=== PATIENT | male | born 1945 | race Caucasian/White ===

== ENCOUNTER 2021-09-01 16:00 | Inpatient (IN) ==
[2021-09-01 16:50] LABS: Hemoglobin 12.4 g/dL (14.0-18.0); Mean Corpuscular Hemoglobin 20.2 pg (25-34); Mean Corpuscular Hgb Conc 32.6 g/dL (32-36); Platelet Count 202 K/uL (130-400); RDW Coefficient of Variation 15.9 % (11.5-14.5); RDW Standard Deviation 35.3 fL (36.4-46.3); Red Blood Count 6.13 M/uL (4.7-6.1); White Blood Count 6.66 K/uL (4.8-10.8)
--- NOTE | 2021-09-01 16:53 | XRay Report ---
XR chest 1V portable CLINICAL HISTORY: stroke alert. Evaluate cardiopulmonary status. Nonsmoker. COMPARISON STUDY: No previous studies for comparison. TECHNIQUE: 1 view of the chest FINDINGS: Single frontal view of the chest demonstrates the cardiomediastinal silhouette to be within normal li mits. The lungs are clear of alveolar opacities. There is no evidence for pleural effusion. There is no evidence for vascular congestion. There is no acute osseous pathology. IMPRESSION: No acute cardiopulmonary disease. ACT 112: Negative or not required by law. Electronically signed by: Guilherme Ortega M.D. 09/01/2021 4:52 PM
--- NOTE | 2021-09-01 17:04 | CT Scan Report ---
HEAD CT NONCONTRAST CT DOSE: 638.56 mGycm HISTORY: Speech difficulty. Stroke symptoms. TECHNIQUE: Multiaxial CT images of the head were performed without the use of intravenous contrast. A utomated exposure control was utilized for this study. A dose lowering technique was utilized adheri ng to the principles of ALARA. Comparison: None. Findings: The paranasal sinuses and mastoid air cells are clear. The calvarium and skull base are int act. There is no mass, hematoma, midline shift, acute infarct. White matter hypodensity is nonspecifi c but suggestive of microvascular ischemic change. The ventricles and sulci demonstrate mild age-rela magdi involutional changes. Mild motion artifact. There is an old lacunar infarct within the right basa l ganglia. Impression: No acute intracranial abnormality. ACT 112: Negative or not required by law. Electronically signed by: Jacques Corley M.D. 09/01/2021 5:02 PM
[2021-09-01 17:10] LABS: Partial Thromboplastin Time 25.4 Seconds (21.0-31.0); Prothrombin Time 10.2 Seconds (9.0-12.0)
[2021-09-01 17:15] LABS: Albumin Globulin Ratio 1.5 (0.9-2); Albumin Level 4.5 gm/dl (3.4-5.0); Bilirubin,Total 0.9 mg/dl (0.2-1.0); Calcium 9.5 mg/dl (8.5-10.1); Creatinine Clr Calc Pharmacy 63.2 ml/min; Est GFR (African American) 92.9 ml/min; Est GFR (Non-African American) 80.1 ml/min; Magnesium 2.1 mg/dl (1.7-2.4); Potassium 3.9 mmol/L (3.5-5.1); Total Protein 7.5 gm/dl (6.0-8.3)
--- NOTE | 2021-09-01 17:40 | Emergency Department Note ---
History of Present Illness General Chief complaint: Leg Weakness, Bilateral Stated complaint: trouble walking, slurred speech x few days Time Seen by Provider: 09/01/21 17:26 Source: patient History of Present Illness Provider complaint: Left leg and hand weakness Onset (ago): day(s) 3 Location: upper extremity, lower extremity and left Pain Consistency: + constant (Waxing and waning) Quality: + other (Weakness) Relieved By: + none Associated symptoms: no chest pain, no cough, no fever/chills, no headaches, no nausea/vomiting or no shortness of breath This is a 75-year-old male who presents with strokelike symptoms for the past 3 days. He has had intermittent symptoms including difficulty finding words as well as slurring of his speech. He has had weakness to the left hand with incoordination and weakness to the left leg so that he has been unable to walk for the past 3 days. He states the weakness has been fairly constant although waxing and waning. He states that he has been crawling from 1 piece of furniture to the other. He does have a history of back issues and has had 3 back surgeries but states he has no back pain. He has had some urinary incontinence but states that he always has urinary incontinence and has been seen by urology for this. He does state that it seems to be worse more re cently. He denies any saddle anesthesia or any pain going down either leg. He denies headache, fever, cough or cold symptoms, chest pain, shortness of breath, abdominal pain, vomiting or diarrhea. Home Medications Medication Instructions Recorded Confirmed Type ibuprofen 600 mg tablet 600 mg PO DAILY 09/01/21 09/01/21 History Allergies Allergy/AdvReac Type Severity Reaction Status Date / Time acetaminophen AdvReac Severe Hallucinati Verified 09/01/21 17:52 [From Darvocet-N] ng azithromycin AdvReac Severe Heart races Verified 09/01/21 17:52 oxycodone [From Percocet] AdvReac Severe Hallucinati Verified 09/01/21 17:52 ng propoxyphene AdvReac Severe Hallucinati Verified 09/01/21 17:52 [From Darvocet-N] ng tramadol AdvReac Mild constipatio Verified 09/01/21 17:52 n Past Med/Surg History Medical History History of anesthesia reaction "requires just minimal amt" Kidney stone one passed on own, one cysto Left shoulder pain Osteoarthritis Thalassemia minor Surgical History H/O repair of rotator cuff L side, done 03/04/21 Dr. Coronado H/O right knee surgery arthroscopic History of colostomy History of cystoscopy History of lumbar surgery x3 History of nasal surgery History of tooth extraction Family History Father Thalassemia Denies family history of Ovarian cancer Prostate cancer Myocardial infarction Breast cancer Colorectal cancer Social History Smoking Status: Never smoker Second Hand Exposure: Yes (parents smoked); Hx Alcohol Use: Yes Alcohol type: wine and hard liquor Alcohol Intake Frequency: 2-3 x/Week Hx Substance Use: No Preferred Language: Cypriot Communication Ability: Effective Visual Impairment: No Limitations Hearing Ability: Normal Safety Council Director Required: No Beliefs That Will Affect Care: None marital status: Current Living Situation: Spouse current occupational status: retired 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 and A total of 10 systems reviewed and were otherwise negative Physical Exam Vital Signs Vital Signs - 24 hr 09/01/21 16:10 09/01/21 16:39 09/01/21 17:07 Temperature 36.9 C Temperature Source Temporal Artery Scan Pulse Rate 97 H Pulse Rate [Apical] 93 H Pulse Rhythm [Apical] Regular Pulse Strength [Apical] Normal Respiratory Rate 16 16 Respiratory Effort / Characteristics Non-Labored Respiratory Depth Normal Respiratory Pattern Regular Blood Pressure 169/88 H Blood Pressure [Right Arm] 164/105 H Blood Pressure Mean 115 Blood Pressure Mean [Right Arm] 124 Blood Pressure Position [Right Arm] Semi-fowlers Pulse Oximetry 100 99 98 Oxygen Delivery Method Room Air Room Air Room Air Sepsis Recent Fever Within 48 Hours No Sepsis New/Unexplained Change in Mental Status N/A Sepsis Action Taken by Nursing No Action Required 09/01/21 18:35 Temperature Temperature Source Pulse Rate Pulse Rate [Apical] 98 H Pulse Rhythm [Apical] Pulse Strength [Apical] Respiratory Rate 24 Respiratory Effort / Characteristics Respiratory Depth Respiratory Pattern Blood Pressure Blood Pressure [Right Arm] 181/124 H Blood Pressure Mean Blood Pressure Mean [Right Arm] 143 Blood Pressure Position [Right Arm] Pulse Oximetry 96 Oxygen Delivery Method Room Air Sepsis Recent Fever Within 48 Hours Sepsis New/Unexplained Change in Mental Status Sepsis Action Taken by Nursing Constitutional: Vital signs reviewed. Eyes: Pupils are equal round reactive to light. Conjunctiva are noninjected. ENT: Pharynx is clear without erythema or exudate. Mucous membranes are moist. Neck supple without meningeal signs. Respiratory: Clear to auscultation bilaterally. Breath sounds are equal bilaterally. Cardiovascular: Regular rate and rhythm. No rubs or gallops. GI: Soft, nondistended and nontender. Bowel sounds are present. Musculoskeletal: No peripheral edema. No lower extremity tenderness. Integumentary: No cyanosis. or jaundice. Neurologic: The patient is awake and alert. Cranial nerves II-XII are intact. Smile is slightly asymmetric on the left side but normal strength is noted. Motor is 5 out of 5 in the right upper and lower extremities. He has 4-5 strength on the left upper extremity in supervisor finish end strength as well as 3 out of 5 strength in the left leg. Sensation is intact to light touch all extremities. Normal speech. No pronator drift. Slight ataxia of the left upper extremity and definite ataxia of the left lower extremity. Psychiatric: Normal affect. Not anxious appearing. Medical Decision Making Differential Diagnosis CVA, TIA, intracranial hemorrhage, intracranial bleed, cauda equina syndrome Medical Records Attestation: I reviewed the patient's medical records. I did perform a limited focused review of portions of the patient's old chart on the electronic medical record. The patient was seen in January of last year for urinary urge incontinence. Home Medications Current Medication List: was personally reviewed by me Laboratory Data Attestation: I reviewed the patient's lab results. Result diagrams: 09/01/21 16:36 09/01/21 16:36 Lab Results 09/01/21 09/01/21 09/01/21 Range/Units 16:36 16:36 16:36 WBC 6.66 (4.8-10.8) K/uL RBC 6.13 H (4.7-6.1) M/uL Hgb 12.4 L (14.0-18.0) g/dL Hct 38.0 L (42-52) % MCV 62.0 L (80-100) fL MCH 20.2 L (25-34) pg MCHC 32.6 (32-36) g/dL RDW Std Deviation 35.3 L (36.4-46.3) fL RDW Coeff of Christin 15.9 H (11.5-14.5) % Plt Count 202 (130-400) K/uL PT 10.2 (9.0-12.0) Seconds INR 1.0 (0.9-1.1) APTT 25.4 (21.0-31.0) Seconds PTT Ratio 1.0 Sodium 139 (136-145) mmol/L Potassium 3.9 (3.5-5.1) mmol/L Chloride 106 (98-107) mmol/L Carbon Dioxide 24 (21-32) mmol/L Anion Gap 9 (3-11) BUN 15 (6-23) mg/dl Creatinine 0.94 (0.6-1.4) mg/dl Est Cr Clr Drug Dosing 63.2 ml/min Est GFR ( Amer) 92.9 ml/min Est GFR (Non-Af Amer) 80.1 ml/min BUN/Creatinine Ratio 16.0 (10-20) Glucose 100 H (70-99(Fasting)) mg/dl Calcium 9.5 (8.5-10.1) mg/dl Magnesium 2.1 (1.7-2.4) mg/dl Total Bilirubin 0.9 (0.2-1.0) mg/dl AST 15 (13-39) U/L ALT 17 (7-52) U/L Alkaline Phosphatase 92 (34-104) U/L Total Protein 7.5 (6.0-8.3) gm/dl Albumin 4.5 (3.4-5.0) gm/dl Globulin 3.0 (2.5-4.0) gm/dl Albumin/Globulin Ratio 1.5 (0.9-2) SARS-CoV-2, RNA, NAAT (NEGATIVE) 09/01/21 Range/Units 17:40 WBC (4.8-10.8) K/uL RBC (4.7-6.1) M/uL Hgb (14.0-18.0) g/dL Hct (42-52) % MCV (80-100) fL MCH (25-34) pg MCHC (32-36) g/dL RDW Std Deviation (36.4-46.3) fL RDW Coeff of Christin (11.5-14.5) % Plt Count (130-400) K/uL PT (9.0-12.0) Seconds INR (0.9-1.1) APTT (21.0-31.0) Seconds PTT Ratio Sodium (136-145) mmol/L Potassium (3.5-5.1) mmol/L Chloride (98-107) mmol/L Carbon Dioxide (21-32) mmol/L Anion Gap (3-11) BUN (6-23) mg/dl Creatinine (0.6-1.4) mg/dl Est Cr Clr Drug Dosing ml/min Est GFR ( Amer) ml/min Est GFR (Non-Af Amer) ml/min BUN/Creatinine Ratio (10-20) Glucose (70-99(Fasting)) mg/dl Calcium (8.5-10.1) mg/dl Magnesium (1.7-2.4) mg/dl Total Bilirubin (0.2-1.0) mg/dl AST (13-39) U/L ALT (7-52) U/L Alkaline Phosphatase (34-104) U/L Total Protein (6.0-8.3) gm/dl Albumin (3.4-5.0) gm/dl Globulin (2.5-4.0) gm/dl Albumin/Globulin Ratio (0.9-2) SARS-CoV-2, RNA, NAAT NEGATIVE (NEGATIVE) Imaging Data Radiologist's Impression: Chest X-Ray 09/01/21 16:14 XR chest 1V portable CLINICAL HISTORY: stroke alert. Evaluate cardiopulmonary status. Nonsmoker. COMPARISON STUDY: No previous studies for comparison. TECHNIQUE: 1 view of the chest FINDINGS: Single frontal view of the chest demonstrates the cardiomediastinal silhouette to be within normal limits. The lungs are clear of alveolar opacities. There is no evidence for pleural effusion. There is no evidence for vascular congestion. There is no acute osseous pathology. IMPRESSION: No acute cardiopulmonary disease. ACT 112: Negative or not required by law. Electronically signed by: Guilherme Ortega M.D. 09/01/2021 4:[address] 09/01/21 16:[address] DOSE: 638.56 mGycm HISTORY: Speech difficulty. Stroke symptoms. TECHNIQUE: Multiaxial CT images of the head were performed without the use of intravenous contrast. Automated exposure control was utilized for this study. A dose lowering technique was utilized adhering to the principles of ALARA. Comparison: None. Findings: The paranasal sinuses and mastoid air cells are clear. The calvarium and skull base are intact. There is no mass, hematoma, midline shift, acute infarct. White matter hypodensity is nonspecific but suggestive of microvascular ischemic change. The ventricles and sulci demonstrate mild age-related involutional changes. Mild motion artifact. There is an old lacunar infarct within the right basal ganglia. Impression: No acute intracranial abnormality. ACT 112: Negative or not required by law. Electronically signed by: Jacques Corley M.D. 09/01/2021 5:02 PM ECG Data Attestation: I personally reviewed and interpreted this ECG as follows: Indication: + other (Stroke symptoms) Rate (beats per minute): 98 Rhythm: + normal sinus ECG Wayne: + Normal ECG ST segments: no ST elevation ECG Findings: + PVCs (Briefly and pattern of bigeminy) Comparison ECG Date: from (March 01, 2021) Change: the following changes noted (Bigeminy is new) MDM Narrative I did evaluate the patient as noted above. He is presenting with strokelike symptoms for the past 3 days. His speech issues have been intermittent and his weakness has been waxing and waning on the left side. He does have urinary incontinence but he denies having any back pain and he has had incontinence for years. IV access was established. I did place an order for continuous cardiac monitoring. The monitor showed normal sinus rhythm at a rate of 94 bpm. did order and personally review the patient's 12-lead EKG as described above. He has no acute ischemic changes but he does have multiple PVCs in a pattern of bigeminy for a brief duration. I did order and personally reviewed the images of the patient's chest x-ray as described above. There is no evidence of pneumonia or acute process. I did order and review the patient's blood work as noted in the electronic medical record. CBC demonstrates a white count of 6.6 with a platelet count of 202. Hemoglobin is 12.4. Coags are unremarkable. Electrolytes and LFTs are unremarkable. I did order a CT of the head. I did review the images myself as well as the radiology report as described above. There is no evidence of acute stroke or bleed. I did discuss the test results with the patient. I did recommend hospitalization for further evaluation and MRI as well as angiograms. He is not a IV tPA candidate given he has had sympt oms for 3 days. did discuss the case with the hospitalist and case finisher. Impression & Plan Acute left-sided muscle weakness, Expressive aphasia, Dysarthria, Bigeminy Discharge Plan Visit Data Chief Complaint: Leg Weakness, Bilateral Stated Complaint: trouble walking, slurred speech x few days ED Provider: Heber Briceno Discharge Problem: Acute left-sided muscle weakness, Expressive aphasia, Dysarthria, Bigeminy Patient Disposition: Being Evaluated by Hospitalist Forms Stand Alone Forms: My [facility] [employer] (formerly [employer]) Prescriptions Prescriptions: No Action ibuprofen 600 mg tablet 600 mg PO DAILY RF: 0 Referrals Referrals: Griselda Hanson MD [Primary Care Provider] -
--- NOTE | 2021-09-01 18:33 | History & Physical Report ---
Date of Service September 01, 2021 Assessment & Plan (1) Left middle cerebral artery stroke: Plan: Likely etiology of his expressive aphasia, dysarthria, and left sided weakness and impaired coordination. - MRI brain ordered - CTA head/neck - TTE - Lipids, A1c - Telemetry - Start ASA & statin - Neurology consult (2) Thalassemia minor: Plan: Hgb baseline appears to be ~12. Presently at baseline with MCV of 62. - Will get anemia labs - Monitor (3) Chronic lower back pain: Plan: Hx of 3 lower back surgeries. Last one was ~18 years ago. - Acetaminophen PRN (4) DVT prophylaxis: Plan: Lovenox 40 mg SQ QAM History of Present Illness Primary Care Provider: Griselda Hanson MD 75yo M w/ hx of lower back pain who presents with concern for stroke. Reports that approx. 3 days, he began to have trouble with strength and coordination of his left side. In general, he denies dizziness, but just felt "wobbly" and would fall to the left. Likewise with his left arm, he reports that it would give out, and he would drop his cup or have trouble lifting up objects. He also reports some difficulty with word-finding, though no outright aphasia. There is some dysarthria as well. He has not taken anything for this. He cannot think of any inciting events prior to this beginning. He denies any palpitations or chest pain. Allergies Allergy/AdvReac Type Severity Reaction Status Date / Time acetaminophen AdvReac Severe Hallucinati Verified 09/01/21 17:52 [From Darvocet-N] ng azithromycin AdvReac Severe Heart races Verified 09/01/21 17:52 oxycodone [From Percocet] AdvReac Severe Hallucinati Verified 09/01/21 17:52 ng propoxyphene AdvReac Severe Hallucinati Verified 09/01/21 17:52 [From Darvocet-N] ng tramadol AdvReac Mild constipatio Verified 09/01/21 17:52 n Home Medications Medication Instructions Recorded Confirmed Type ibuprofen 600 mg tablet 600 mg PO DAILY 09/01/21 09/01/21 History Past Med/Surg History Medical History History of anesthesia reaction "requires just minimal amt" Kidney stone one passed on own, one cysto Left shoulder pain Osteoarthritis Thalassemia minor Surgical History H/O repair of rotator cuff L side, done 03/04/21 Dr. Coronado H/O right knee surgery arthroscopic History of colostomy History of cystoscopy History of lumbar surgery x3 History of nasal surgery History of tooth extraction Family History Father Thalassemia Denies family history of Ovarian cancer Prostate cancer Myocardial infarction Breast cancer Colorectal cancer Social History Smoking Status: Never smoker Second Hand Exposure: Yes (parents smoked); Hx Alcohol Use: Yes Alcohol type: wine and hard liquor Alcohol Intake Frequency: 2-3 x/Week Hx Substance Use: No Preferred Language: Croatian Communication Ability: Effective Visual Impairment: No Limitations Hearing Ability: Normal Brush Trimming Machine Setter Required: No Beliefs That Will Affect Care: None marital status: Current Living Situation: Spouse current occupational status: retired 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, 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, 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, 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, 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 Feels Safe at Home: Yes Childhood Exposure to Second-Hand Smoke: Yes Dental Care, Regularly: Yes Physical Activity Frequency: Daily Seatbelt Use: always Sunscreen Use: Yes (sometimes ) Assistive Devices: Glasses Review of Systems Review of Systems: All systems reviewed & are unremarkable except as noted in HPI & below Physical Exam Constitutional: WD/WN, vitals as above Eyes: EOM intact bilaterally; no conjunctival abnormality ENMT: external ear and nose normal, oropharynx normal Neck: trachea midline, no thyromegaly normal visual inspection Respiratory: normal respiratory effort, lungs clear to auscultation no respiratory distress Cardiovascular: RRR, no murmur, no edema Gastrointestinal (Abdomen): Inspection/Auscultation: abdomen normal to inspection; abdomen not distended Musculoskeletal: no cyanosis or clubbing, extremities motor strength 5/5 Skin: no rashes, warm and dry Neurologic: moves all extremities, + focal motor deficit (Left arm and leg) and awake Speech / Cognition: + abnormal speech and + expressive aphasia (Mild word-finding issues) Motor/Sensory: + abnormal movement and + pronator drift Cranial Nerves: + abnormal facial strength (Left ptosis) Psychiatric: Orientation: alert, oriented to person and cooperative Results & Data Results & Data ([facility]) Vital Signs (Past 12 Hours) Vital Signs Temp Pulse Pulse Resp BP BP Pulse Ox 09/01/21 17:07 93 H 16 164/105 H 98 09/01/21 16:39 99 09/01/21 16:10 36.9 C 97 H 16 169/88 H 100 Code Status & VTE Plan VTE Prophylaxis Plan VTE Prophylaxis will be ordered: Yes PG Care Time/CCT Total # of Minutes Spent Total Time Spent with Patient: Total time spent is greater than 50% in coordination of care (as documented) at patient's floor/unit and/or counseling patient: Coding Level of Care Code 97415 Initial Inpt Care Lvl 3 Diagnoses Left middle cerebral artery stroke I63.512 Thalassemia minor D56.3 Chronic lower back pain M54.50; G89.29 DVT prophylaxis Z29.9
[2021-09-01] MEDS: ASPIRIN 81 MG CHEW PO SCH (18:47)
[2021-09-01] MEDS ORDERED: ONDANSETRON INJ 2 MG/ML 2 ML VIAL IV PRN (21:28)
[2021-09-01] MEDS ORDERED: ACETAMINOPHEN 325 MG TAB PO PRN (21:28)
[2021-09-01] MEDS ORDERED: OPTIRAY 320 125ml IV ONE (21:52)
--- NOTE | 2021-09-01 22:12 | CT Scan Report ---
CT angio head w con CLINICAL HISTORY: Stroke symptoms. Difficulty with speech COMPARISON STUDY: CT brain without contrast from 09/01/2021 CT DOSE: TECHNIQUE: CT Angio of the brain was performed.followed by image post processing with coronal, and s agittal MIP reformats. Contrast Volume: Optiray 320, 110 ml FINDINGS: Vascular findings: There is normal enhancement within the internal carotid arteries bilaterally. On the left side, there is normal enhancement noted within the anterior, middle and posterior cerebral a rteries. On the right side, there is evidence for high-grade stenosis involving the P1 segment of the right po sterior cerebral artery. No occlusion is seen. The right middle and anterior cerebral arteries are wi thin normal limits with normal enhancement. Nonvascular findings: There is homogeneous attenuation of the brain parenchyma bilaterally. There is no evidence for an acute infarct or cerebral edema. 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 Otherwise, negative CTA of the brain. ACT 112: Negative or not required by law. Electronically signed by: Guilherme Ortega M.D. 09/01/2021 10:11 PM
--- NOTE | 2021-09-01 22:16 | CT Scan Report ---
CT angio neck with con CLINICAL HISTORY: Stroke symptoms. Slurred speech COMPARISON STUDY: No previous studies for comparison. CT DOSE: 487.74 mGy.cm TECHNIQUE: CT Angio of the neck was performed.followed by image post processing with coronal, and sa gittal MIP reformats.. Stenosis assessment by NASCET criteria. Contrast Volume: Optiray 320, 110 ml FINDINGS: Vascular findings: Right common carotid artery: Patent without significant stenosis. Right internal carotid artery: Patent without significant stenosis.The artery is tortuous. Right vertebral artery: Patent without significant stenosis. Left common carotid artery: Patent without significant stenosis. Left internal carotid artery: Patent without significant stenosis.The artery is tortuous. Left vertebral artery: Patent without significant stenosis. Nonvascular findings: The parotid and submandibular salivary glands appear normal. There is no enlarged cervical adenopathy noted. The airway appears patent. The thyroid gland appears within normal limits. The lung apices ap pear within normal limits. Impression: Essentially negative CT angiogram of the neck with contrast. ACT 112: Negative or not required by law. Electronically signed by: Guilherme Ortega M.D. 09/01/2021 10:14 PM
[2021-09-02 06:13] LABS: Hematocrit (blood only) 36.5 % (42-52); Hemoglobin 11.9 g/dL (14.0-18.0); Mean Corpuscular Hemoglobin 20.2 pg (25-34); Mean Corpuscular Hgb Conc 32.6 g/dL (32-36); Mean Corpuscular Volume 61.9 fL (80-100); Platelet Count 169 K/uL (130-400); RDW Coefficient of Variation 15.7 % (11.5-14.5); RDW Standard Deviation 34.8 fL (36.4-46.3); White Blood Count 5.37 K/uL (4.8-10.8)
[2021-09-02 07:07] LABS: Ferritin 359.4 ng/ml (8-388)
[2021-09-02 07:14] LABS: Folate (Folic Acid) > 22.30 ng/ml (>5.38); Vitamin B12 659 pg/ml (211-911)
[2021-09-02 07:23] LABS: BUN Creatinine Ratio 16.1 (10-20); Creatinine Clr Calc Pharmacy 68.2 ml/min; Est GFR (African American) 99.2 ml/min; Est GFR (Non-African American) 85.6 ml/min; Magnesium 2.1 mg/dl (1.7-2.4); Potassium 3.9 mmol/L (3.5-5.1)
--- NOTE | 2021-09-02 07:46 | Magnetic Resonance Report ---
Brain MRI WITHOUT CONTRAST HISTORY: Left-sided weakness. Slurred speech. Stroke TECHNIQUE: Multiplanar multisequence MRI of the brain was performed without the use of contrast. COMPARISON STUDY: Head CT 09/01/2021. FINDINGS: There is a faint area of restricted diffusion within the right daron measuring 17 x 9 mm con sistent with an acute infarct. There is mild focal scarring within the corpus callosum. The remaining midline structures are intact. Scattered patchy areas of T2 hyperintensity seen predominantly within the periventricular white matter of the supratentorial brain favor mild to moderate microvascular is chemic change. Small right frontal lobe with old periventricular infarcts are also noted. The ventric les and sulci demonstrate mild age-related involutional changes. There is no mass, hematoma, midline shift. The major vascular flow-voids at the skull base are well-maintained. The orbits are unremarkab le. The paranasal sinuses and mastoid air cells are clear. IMPRESSION: 1. A 17 x 9 mm acute pontine infarct. 2. Mild to moderate microvascular ischemic changes. ACT 112: Negative or not required by law. Electronically signed by: Jacques Corley M.D. 09/02/2021 7:44 AM
[2021-09-02 08:02] LABS: Estimated Average Glucose 117 mg/dl; Hemoglobin A1C 5.7 % (4.5-5.6)
--- NOTE | 2021-09-02 08:18 | Neurology Consultation ---
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 he has [id number] old chronic cerebral ischemia noted on MRI. Clinically he has left pamela paresis, arm and leg greater than face. He also has some dysarthria. Therefore this is essentially a pure motor stroke. The patient had hypertension on admission. This is markedly improved on no medicines. In addition, he had a symptomatic episode of sinus bradycardia which I witnessed giving him significant lightheadedness ( near syncope but no actual syncope) and worsening of his dysarthria and left sided weakness to a plegia. Over the next 30 minutes his speech and sensorium came back to normal and his weakness on the left side was similar to that which I saw on my examination listed above. Therefore he had an episode of hypoperfusion to his area of stroke, likely temporarily worsening his symptoms and then recovered as his pulse and pressure recovered. Recommendations: 1. avoid over-correction of blood pressure - just monitor for now 2. Consider Cardiology consult for this episode of symptomatic sinus bradycardia. 3. initiate 81 milligram aspirin tablet daily. 4. Physical, occupational, and speech therapy consult. 5. awaiting echocardiogram results 6. this patient would be, technically, a high dose statin candidate but I would start him on a standard dose for now. Overall, I spent a total of 130 minutes with this case including review of records, review of MRI films, direct evaluation the patient at bedside including prolonged bedside monitoring of the patient's neurologic condition, and discussion of the case with the patient and RN at bedside as well as Dr. Pinto and Dr. Corley, including differential diagnosis and treatment options. History of Present Illness Reason for Consultation: Patient is a 75-year-old, who I was asked to see at the request of Dr. Pinto, for neurologic consultation regarding stroke. Requesting Physician: Dr. Pinto Attending Physician: Sj Pinto MD History of Present Illness patient has a history of high blood pressure in the past but he has a history of "reactions" to high blood pressure medication. He states that he could have episodes where he suddenly feels like he has to pass out and is weak. Cannot remember the last time he had 1 of these episodes. He has a history of nephrolithiasis and thalassemia minor. He has some urinary incontinence a chronic nature and is post 3 lumbosacral spine surgeries (the most recent was at least 23 years ago). He had a left shoulder arthroscopic repair by Dr. Coronado in February 2022 and is doing well.Overall he is doing fairly well in the legs although he has noted since the summer that when he is in the water (fly fishing) his balance is worse. He believes that on August 29 he woke up with he his legs wobble E left greater than right side. By the he noted that he had some word-finding difficulties when on the phone and his told him that his speech was slurred. By that time he clearly had weakness in the left arm and leg. He was clumsy with the hand in his gait was affected. He arrived to the emergency room September 01 at 16:10 with a temperature of 36.9, pulse is 97 regular, respiratory rate 16, blood pressure 169/88 ( later 164/105) and O2 saturation 100 percent. In the emergency room he could walk some with a walker but was noted to have left-sided weakness and left facial droop. He did not have significant aphasia or dysarthria. CBC showed mild stable anemia and Chem profile was unremarkable. Chest x-ray was unremarkable. CT scan of the head showed no acute changes. CT angiography of the head neck was remarkable only for some high-grade stenosis in the right LAW EXAMINER P1 segment only. Otherwise there was no vascular anomalies or stenoses. MRI of the brain shows an acute/subacute right daron infarct. There is [id number] generalized atrophy and small vessel ischemic changes as well. I reviewed these films with Dr. Corley Around 629 I watched the patient come out of the bathroom and walk to his bed with a limp favoring and circumducting his left leg. He then sat on the edge of the bed and we conducted the interview and neurologic examination. He did not stand the entire time. He had no lightheadedness or pain. No headache, numbness, vision problems, swallowing issues or dizziness. Shortly after 7 a.m., as I was explaining his case and findings to him, the patient suddenly cried out and said "something is happening to me" he had a glazed look over his eyes and stopped talking. He was laid down in the bed and his blood pressure was 87/54 with a pulse of 72. 5 minutes later his blood pressure was 80/55 with a pulse of 72. His O2 saturation was stable at 94 percent. when I 1st laid him down, he had increased dysarthria but could follow one-step commands and had not passed out. He had no abnormal involuntary movements. His left facial droop was worse and he had plegia of the left arm and leg. Checking with cardiac monitoring, he had a 10 second run of sinus bradycardia of 49. about a minute or 2 prior to that he went from a pulse in the 90s to a pulse in the 70s (again sinus rhythm with no other dysrhythmia noted by the monitoring library acquisitions technician ). Gradually, over the Course of 30 minutes the patient has had more alertness, less dysarthria, less facial droop, and movement of his left arm and leg. When I last saw him he was very close to his baseline neurologically, when I was was doing my neurologic examination, before his event. By 07, blood pressure was 130/84, pulse was in the 70s. CBC showed the anemia as before and Chem profile was unremarkable. Hemoglobin A1c is 5.7. Liver profile is normal. Triglycerides were 118 and total cholesterol 226. B12 was normal at 659 and folate was normal. Allergies Allergy/AdvReac Type Severity Reaction Status Date / Time acetaminophen AdvReac Severe Hallucinati Verified 09/01/21 17:52 [From Darvocet-N] ng azithromycin AdvReac Severe Heart races Verified 09/01/21 17:52 oxycodone [From Percocet] AdvReac Severe Hallucinati Verified 09/01/21 17:52 ng propoxyphene AdvReac Severe Hallucinati Verified 09/01/21 17:52 [From Darvocet-N] ng tramadol AdvReac Mild constipatio Verified 09/01/21 17:52 n Home Medications Medication Instructions Recorded Confirmed Type ibuprofen 600 mg tablet 600 mg PO DAILY 09/01/21 09/01/21 History Patient History Medical History History of anesthesia reaction "requires just minimal amt" Kidney stone one passed on own, one cysto Left shoulder pain Osteoarthritis Thalassemia minor Surgical History H/O repair of rotator cuff L side, done 03/04/21 Dr. Coronado H/O right knee surgery arthroscopic History of colostomy History of cystoscopy History of lumbar surgery x3 History of nasal surgery History of tooth extraction Family History Father , age 67 of Pseudomonas infection of the lung Thalassemia COPD (chronic obstructive pulmonary disease) Mother , age 83 of lung cancer COPD (chronic obstructive pulmonary disease) Lung cancer Denies family history of Ovarian cancer Prostate cancer Myocardial infarction Breast cancer Colorectal cancer Social History (Updated 09/02/21 @ 08:01 by Marquise Candelaria MD) Smoking Status: Never smoker Second Hand Exposure: Yes (parents smoked); Hx Alcohol Use: Yes Alcohol type: wine and hard liquor Alcohol Intake Frequency: 2-3 x/Week Hx Substance Use: No Preferred Language: Egyptian Communication Ability: Effective Visual Impairment: No Limitations Hearing Ability: Normal [place] Required: No Beliefs That Will Affect Care: None marital status: Current Living Situation: Spouse current occupational status: retired 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, 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, 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, 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 Feels Safe at Home: Yes Childhood Exposure to Second-Hand Smoke: Yes Dental Care, Regularly: Yes Physical Activity Frequency: Daily Seatbelt Use: always Sunscreen Use: Yes (sometimes ) Assistive Devices: None Review of Systems Constitutional: no fever and no fatigue Eyes: no diplopia, no eye pain and no worsening vision Ear, Nose, Mouth, Throat: no ear pain, no tinnitus, no hearing loss, no dizziness, no snoring, no hoarseness and no dysphagia Respiratory: no cough and no dyspnea Cardiovascular: no chest pain, no palpitations and no lightheadedness Gastrointestinal: no abdominal pain, no nausea and no vomiting Musculoskeletal: + back pain; no neck pain, no radicular pain, no joint pain and no myalgia Integumentary: no rash and no lesions Neurologic: + gait abnormality, + localized weakness and + abnormal speech; no generalized weakness, no tingling, no numbness, no tremor(s), no abnormal movements, no headache(s), no confusion and no memory loss Psychiatric: no depression, no irritability, no anxiety, no difficulty concentrating, no confusion and no hallucinations Endocrine: no fatigue and no flushing Hematologic / Lymphatic: no easy bleeding and no easy bruising Allergy / Immunological: no urticaria and no problem reported Exam (Neuro) Physical Exam: The patient is right-handed. The patient is awake, alert, and attentive. Speech is without any obvious aphasia, and he had some mild dysarthria. The patient can name objects, repeat phrases, and has normal spontaneous speech. Mentation and thought processes are intact, with orientation to person, place and time, and normal fund of knowledge. Attention and concentration are normal. Mood and affect are normal and appropriate. General appearance and grooming are normal. Short and long- term memory are intact. Pupils are 4 mm bilaterally and reactive to light. Extraocular eye muscles are intact without nystagmus. Visual acuity and visual lopez seem normal grossly to confrontation. There are no deficits to sensation in the face in all 3 distributions of the fifth cranial nerve bilaterally. Corneal reflexes are positive bilaterally. He had a very mild asymmetry with voluntary smile on the left compared to the right which is normal. There was no actual droop. Hearing seems normal bilaterally. Palate moves well without asymmetry. There is normal sternocleidomastoid and trapezius (shoulder shrug) strength bilaterally. Tongue is midline with good strength bilaterally. Neck has a full range of motion without discomfort. There are no cervical bruits bilaterally. There are no cranial or ocular bruits. Heart is without murmur. There is a regular rhythm and rate. Cervical, thoracic, and lumbar spine are nontender to palpation. Gait is narrow based, and he limps favoring the left leg, circumduct in this limb and holding his left arm next to his body. With outstretched arms there is Drift on the left. There are no resting, postural, or action tremors. There is no ataxia with finger to nose testing. There is decreased facility in the left hand. No other abnormal involuntary movements are noted. Motor strength is 5/5 diffusely in the right upper extremity, including deltoids, biceps, triceps, brachioradialis, wrist flexors and extensors, cutter v groove, and intrinsic hand muscles. The left upper extremity is diffusely 4/5. Motor strength is 5/5 diffusely in the Right lower extremity, including hip flexors, quadriceps, hamstrings, gastrocnemius, tibialis anterior, tibialis posterior, and Peroneii muscles. These same muscles on the left are 4/5. The limbs have good tone without rigidity or spasticity. There is no atrophy noted in the muscles. Muscle bulk is normal, there is no tenderness to palpation, no myotonia to percussion, and no fasciculations seen. Sensory examination is intact to touch and pin throughout all 4 limbs diffusely. Reflexes are 2/4 in the biceps, triceps, brachioradialis, and quadriceps tendons on the right. the left upper extremity has absent reflexes, the quadriceps on the left is 2/ for and both Achilles tendon reflexes are absent bilaterally. There is no clonus bilaterally. Toes are neutral to downgoing with plantar stimulation bilaterally. Peripheral pulses are present and of normal quality distally in all 4 limbs. There is no peripheral edema noted in the limbs. Results & Data ([facility]) Vital Signs (Past 12 Hours) Vital Signs Temp Pulse Pulse Pulse Resp BP BP 09/02/21 07:38 36.3 C L 82 72 20 130/84 09/02/21 07:13 80/55 L 09/02/21 07:09 87/54 L 09/02/21 03:24 36.6 C 79 18 159/86 H 09/02/21 00:24 36.8 C 90 20 138/100 09/01/21 23:23 36.6 C 80 18 160/101 H 09/01/21 22:59 80 09/01/21 21:28 36.8 C 92 H 20 138/100 09/01/21 21:14 97 H Pulse Ox 09/02/21 07:38 94 09/02/21 07:13 09/02/21 07:09 09/02/21 03:24 96 09/02/21 00:24 97 09/01/21 23:23 94 09/01/21 22:59 09/01/21 21:28 97 09/01/21 21:14 PG Care Time/CCT Total # of Minutes Spent Total Time Spent: 130 Total Time Spent with Patient: Total time spent is greater than 50% in coordination of care (as documented) at patient's floor/unit and/or counseling patient: Coding Level of Care Code 18645 Initial Inpt Care Lvl 3 Diagnoses 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
[2021-09-02] MEDS: ENOXAPARIN INJ 40 MG/0.4 ML SYR SQ SCH (09:02)
--- NOTE | 2021-09-02 11:56 | Hospitalist Progress Note ---
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 - CTA head / neck on 09/01 showed high-grade stenosis of right P1, but otherwise normal. - TTE pending - PT/OT/RESERVOIR CARETAKER pending - Neuro recommend ASA & statin - A1c was 5.7%. - Monitor on telemetry (2) Symptomatic sinus bradycardia: Plan: Has reported episodes of going dark for "years." At ~7am on 09/02, while in the presence of the neurologist, he became acute hypotensive with transient worsening of his stroke symptoms. His telemetry showed an acute drop in his HR to 39. He rebounded on his own without fluids or additional medication. - Cardiology consult (3) Thalassemia minor: Plan: Hgb baseline appears to be ~12. Presently at baseline with MCV of 62. Anemia labs all normal. - Monitor (4) Chronic lower back pain: Plan: Hx of 3 lower back surgeries. Last one was ~18 years ago. - Acetaminophen PRN (5) DVT prophylaxis: Plan: Lovenox 40 mg SQ QAM Admission and Anticipated Discharge Date Admission Date: September 01, 2021 Subjective Episode of bradycardia and hypotension this morning around 7am. This worsened his CVA symptoms, but now improving again after HR returned to normal. Reports no fevers/chills, chest pain, shortness of breath, abdominal pain, nausea, or vomiting. Physical Exam Constitutional: WD/WN, vitals as above Eyes: EOM intact bilaterally; no conjunctival abnormality ENMT: external ear and nose normal, oropharynx normal Neck: trachea midline, no thyromegaly normal visual inspection Respiratory: normal respiratory effort, lungs clear to auscultation no respiratory distress Cardiovascular: RRR, no murmur, no edema Gastrointestinal (Abdomen): Inspection/Auscultation: abdomen normal to inspection; abdomen not distended Musculoskeletal: no cyanosis or clubbing, extremities motor strength 5/5 Skin: no rashes, warm and dry Neurologic: moves all extremities, + focal motor deficit (Left arm and leg) and awake Speech / Cognition: + abnormal speech and + expressive aphasia (Mild word-finding issues) Motor/Sensory: + abnormal movement and + pronator drift Cranial Nerves: + abnormal facial strength (Left ptosis) Psychiatric: Orientation: alert, oriented to person and cooperative Results & Data Results & Data ([facility]) Vital Signs (Past 12 Hours) Vital Signs Temp Pulse Pulse Resp BP Pulse Ox 09/02/21 11:16 36.4 C L 88 20 144/84 H 98 09/02/21 07:38 36.3 C L 82 72 20 130/84 94 09/02/21 07:13 80/55 L 09/02/21 07:09 87/54 L 09/02/21 03:24 36.6 C 79 18 159/86 H 96 09/02/21 00:24 36.8 C 90 20 138/100 97 PG Care Time/CCT Total # of Minutes Spent Total Time Spent with Patient: Total time spent is greater than 50% in coordination of care (as documented) at patient's floor/unit and/or counseling patient: Coding Level of Care Code 49233 Subseq Hosp Care Lvl 3 Diagnoses Thalassemia minor D56.3 Chronic lower back pain M54.50; G89.29 DVT prophylaxis Z29.9 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
[2021-09-02] MEDS: ASPIRIN 81 MG CHEW PO SCH (12:42)
[2021-09-02] MEDS: ATORVASTATIN 40 MG TAB PO SCH (12:43)
--- NOTE | 2021-09-02 14:54 | Cardiology Consultation ---
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 Bradycardia: He remained in sinus rhythm and heart rate trended downward only to gradually increase back to baseline. Lowest heart rate appeared to be in the 40s, only transiently. He was quite symptomatic as this did occur in the setting of hypotension. This may be vagally mediated. He is not on any rate controlling medications. Unfortunately stroke symptoms worsened during this event, however this event appears to be intermittently occurring on a chronic basis. It is not clear if pacemaker will definitively improved symptoms. It should alleviate transient bradycardia, however the hypotension would still occur. Symptoms may improve, but may not, and unfortunately may not know for sure until after a pacemaker is placed. We discussed this and he and his expressed understanding. Would defer to electrophysiology to determine if pacemaker is indicated. Electrophysiology consultation placed. Patient care and presentation discussed with Dr. Brink, who plans on seeing him tomorrow for consultation. 2. 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 Agree with statin therapy. 3. Right pontine stroke: As per Neurology and primary service. 4. Disposition: Electrophysiology consultation placed. Patient care discussed with Dr. Pinto of the primary hospitalist service and Dr. Brink of electrophysiology. Please call with any other questions or concerns. Thank you for allowing me to participate in the care of your patient. Please call for any other questions or concerns. Sincerely, Fran Faustin M.D. History of Present Illness Reason for Consultation: symptomatic bradycardia Requesting Physician: Sj Pinto MD Attending Physician: Sj Pinto MD History of Present Illness Mr. Rodriguez is a very pleasant 75-year-old gentleman with a history of thalassemia minor, who was admitted on 09/01/2021 with stroke. He reports that his stroke symptoms began on 08/31/2021, involving the left side of his body. On presentation, records would indicate that symptoms may have began 3 days prior to presentation. He was also noted to have dysarthria. Brain MRI on 09/01/2021 demonstrated acute pontine infarct. 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 He has been seen by Neurology, Dr. Candelaria, and was noted to have left hemiparesis and dysarthria. During neurology evaluation today, he reportedly cried out something is happening to me. He then had a glazed look over his eyes and stop talking. This occurred while he was sitting in bed, and apparently had been sitting in bed for approximately 30 minutes. He was then laid down in bed and was noted to have a blood pressure of 87/54 and heart rate of 72. Minutes later, blood pressure was 80/55 with a pulse of 72 per report. His stroke-like symptoms worsened. It was reported that he became bradycardic with heart rates in the 40s. Telemetry demonstrated sinus rhythm which trended downward with heart rates into the 50s and transiently into the 40s, but remaining in sinus. Heart rate then gradually increased back to what had been his baseline. He is adamant that his stroke like symptoms have remained worsened since that event. He also recalls that for years he has been having near syncopal episodes and on 1 occasion syncope with similar symptoms that occurred this morning, not including his stroke symptoms. His syncope and near syncope have occurred both standing or sitting without identifiable trigger. He can go significant amounts of time without an episode, as long as 1 year. One such episode did occur while having issues with a kidney stone but others without any particular issue. He denies chest pain, shortness of breath, palpitations, or bleeding. He does have chronic lower extremity swelling. His was present at the bedside during our meeting and provided some of the history, acknowledging his near syncopal and syncopal episodes. Review of systems: As above. Review of systems otherwise negative/unremarkable. Family history: No known premature CAD. Social history: Has never smoked. Parents were heavy smokers and he recalls significant secondhand smoke. Consumes 1-2 alcoholic beverages per day. Lives at home with his . Two grown sons. 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 His was present at the bedside. Allergies Allergy/AdvReac Type Severity Reaction Status Date / Time acetaminophen AdvReac Severe Hallucinati Verified 09/01/21 17:52 [From Darvocet-N] ng azithromycin AdvReac Severe Heart races Verified 09/01/21 17:52 oxycodone [From Percocet] AdvReac Severe Hallucinati Verified 09/01/21 17:52 ng propoxyphene AdvReac Severe Hallucinati Verified 09/01/21 17:52 [From Kelvin] ng tramadol AdvReac Mild constipatio Verified 09/01/21 17:52 n Home Medications Medication Instructions Recorded Confirmed Type ibuprofen 600 mg tablet 600 mg PO DAILY 09/01/21 09/01/21 History Patient History Medical History (Updated 09/02/21 @ 17:44 by Ovidio Faustin MD) 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 Coronado H/O right knee surgery arthroscopic History of colostomy History of cystoscopy History of lumbar surgery x3 History of nasal surgery History of tooth extraction Family History Father , age 67 of Pseudomonas infection of the lung Thalassemia COPD (chronic obstructive pulmonary disease) Mother , age 83 of lung cancer COPD (chronic obstructive pulmonary disease) Lung cancer Denies family history of Ovarian cancer Prostate cancer Myocardial infarction Breast cancer Colorectal cancer Social History (Updated 09/02/21 @ 08:01 by Marquise Candelaria MD) Smoking Status: Never smoker Second Hand Exposure: Yes (parents smoked); Hx Alcohol Use: Yes Alcohol type: wine and hard liquor Alcohol Intake Frequency: 2-3 x/Week Hx Substance Use: No Preferred Language: Peruvian Communication Ability: Effective Visual Impairment: No Limitations Hearing Ability: Normal 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 Alert and oriented. Mild dysarthria. HEENT: Anicteric sclera. Neck: No JVD. No bruits. Normal carotid upstrokes bilaterally. Cardiac: PMI was nondisplaced. No ventricular heave. Regular. Normal S1-S2. No murmurs, rubs, or gallops. Pulmonary: Clear to auscultation bilaterally without wheezes, rales, or rhonchi. Abdomen: Soft, nontender, nondistended, with normoactive bowel sounds. No bruits noted. Extremities: 2+ radial pulses bilaterally. 2+ posterior tibialis pulses bilaterally. No edema or cyanosis. Psychiatric: Affect appears appropriate. Neuro: Neuro exam not performed. Results & Data ([facility]) Vital Signs (Past 12 Hours) Vital Signs Temp Pulse Pulse Resp BP Pulse Ox 09/02/21 11:16 36.4 C L 88 20 144/84 H 98 09/02/21 07:38 36.3 C L 82 72 20 130/84 94 09/02/21 07:13 80/55 L 09/02/21 07:09 87/54 L 09/02/21 03:24 36.6 C 79 18 159/86 H 96 Laboratory Results Laboratory Results - last 24 hr 09/01/21 09/01/21 09/01/21 16:36 16:36 16:36 WBC 6.66 RBC 6.13 H Hgb 12.4 L Hct 38.0 L MCV 62.0 L MCH 20.2 L MCHC 32.6 RDW Std Deviation 35.3 L RDW Coeff of Christin 15.9 H Plt Count 202 PT 10.2 INR 1.0 APTT 25.4 PTT Ratio 1.0 Sodium 139 Potassium 3.9 Chloride 106 Carbon Dioxide 24 Anion Gap 9 BUN 15 Creatinine 0.94 Est Cr Clr Drug Dosing 63.2 Est GFR ( Amer) 92.9 Est GFR (Non-Af Amer) 80.1 BUN/Creatinine Ratio 16.0 Glucose 100 H Estimat Average Glucose Hemoglobin A1c Calcium 9.5 Magnesium 2.1 Iron TIBC Unsaturated IBC Transferrin Transferrin % Sat Ferritin Total Bilirubin 0.9 AST 15 ALT 17 Alkaline Phosphatase 92 Total Protein 7.5 Albumin 4.5 Globulin 3.0 Albumin/Globulin Ratio 1.5 Triglycerides Cholesterol LDL Cholesterol, Calc VLDL Cholesterol, Calc HDL Cholesterol Cholesterol/HDL Ratio Vitamin B12 Folate SARS-CoV-2, RNA, NAAT 09/01/21 09/02/21 09/02/21 17:40 05:59 05:59 WBC 5.37 RBC 5.90 Hgb 11.9 L Hct 36.5 L MCV 61.9 L MCH 20.2 L MCHC 32.6 RDW Std Deviation 34.8 L RDW Coeff of Christin 15.7 H Plt Count 169 PT INR APTT PTT Ratio Sodium 141 Potassium 3.9 Chloride 108 H Carbon Dioxide 25 Anion Gap 8 BUN 14 Creatinine 0.87 Est Cr Clr Drug Dosing 68.2 Est GFR ( Amer) 99.2 Est GFR (Non-Af Amer) 85.6 BUN/Creatinine Ratio 16.1 Glucose 95 Estimat Average Glucose Hemoglobin A1c Calcium 9.0 Magnesium 2.1 Iron 134 TIBC 295 Unsaturated IBC 161 Transferrin 195 L Transferrin % Sat 45 Ferritin 359.4 Total Bilirubin AST ALT Alkaline Phosphatase Total Protein Albumin Globulin Albumin/Globulin Ratio Triglycerides 118 Cholesterol 226 H LDL Cholesterol, Calc 157 VLDL Cholesterol, Calc 24 HDL Cholesterol 45 Cholesterol/HDL Ratio 5.0 Vitamin B12 Folate SARS-CoV-2, RNA, NAAT NEGATIVE 09/02/21 09/02/21 05:59 05:59 WBC RBC Hgb Hct MCV MCH MCHC RDW Std Deviation RDW Coeff of Christin Plt Count PT INR APTT PTT Ratio Sodium Potassium Chloride Carbon Dioxide Anion Gap BUN Creatinine Est Cr Clr Drug Dosing Est GFR ( Amer) Est GFR (Non-Af Amer) BUN/Creatinine Ratio Glucose Estimat Average Glucose 117 Hemoglobin A1c 5.7 H Calcium Magnesium Iron TIBC Unsaturated IBC Transferrin Transferrin % Sat Ferritin Total Bilirubin AST ALT Alkaline Phosphatase Total Protein Albumin Globulin Albumin/Globulin Ratio Triglycerides Cholesterol LDL Cholesterol, Calc VLDL Cholesterol, Calc HDL Cholesterol Cholesterol/HDL Ratio Vitamin B12 659 Folate > 22.30 SARS-CoV-2, RNA, NAAT Diagnostic Findings Telemetry personally reviewed: Sinus rhythm with transient bradycardia as outlined above in HPI. No arrhythmia noted. Brain MRI/head CTA/neck CTA: Reports reviewed as outlined above in HPI. ECG personally reviewed 09/01/2021 at 4:31 p.m.: Sinus rhythm with PVCs 98 beats per minute. Echo 09/02/2021: Images personally reviewed. Preliminary review demonstrated normal LV systolic function without significant valvular stenosis/regurgitation. Formal review to follow. Medications Administered Current Inpatient Medications Acetaminophen (Acetaminophen 325 Mg Tab) 650 mg PO Q4H PRN PRN Reason: pain/fever Stop: 10/01/21 21:27 Aspirin (Aspirin 81 Mg Chew) 81 mg PO DAILY [facility] Stop: 10/01/21 18:29 Last Admin: 09/02/21 12:42 Dose: 81 mg Documented by: Atorvastatin Calcium (Atorvastatin 40 Mg Tab) 80 mg PO QAM [facility] Stop: 10/02/21 08:59 Last Admin: 09/02/21 12:43 Dose: 80 mg Documented by: Enoxaparin Sodium (Enoxaparin Inj 40 Mg/0.4 Ml Syr) 40 mg SQ QAM [facility] Stop: 10/02/21 08:59 Last Admin: 09/02/21 09:02 Dose: 40 mg Documented by: Ondansetron HCl (Ondansetron Inj 2 Mg/Ml 2 Ml Vial) 4 mg IV Q4H PRN PRN Reason: Nausea Stop: 10/01/21 21:27 PG Care Time/CCT Total # of Minutes Spent Total Time Spent with Patient: Total time spent is greater than 50% in coordination of care (as documented) at patient's floor/unit and/or counseling patient: Coding Level of Care Code 48503 Initial Inpt Care Lvl 3 Diagnoses Symptomatic sinus bradycardia R00.1 Dyslipidemia E78.5 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
--- NOTE | 2021-09-02 18:25 | XCELERA ---
[id number] \\[id number]}___[id number]
--- NOTE | 2021-09-03 05:56 | Electrocardiogram Report ---
Test Reason : Blood Pressure : / mmHG Vent. Rate : 098 BPM Atrial Rate : 098 BPM P-R Int : 136 ms QRS Dur : 092 ms QT Int : 354 ms P-R-T Axes : 060 039 012 degrees QTc Int : 451 ms Sinus rhythm with frequent Premature ventricular complexes Possible Left atrial enlargement Borderline ECG When compared with ECG of 01-MAR-2021 11:26, Premature ventricular complexes are now Present Confirmed by Ovidio Faustin ([id number]) on 09/03/2021 5:56:25 AM Referred By: Griselda Hanson Confirmed By:Ovidio Faustin
[2021-09-03 06:04] LABS: Hematocrit (blood only) 35.7 % (42-52); Hemoglobin 11.6 g/dL (14.0-18.0); Mean Corpuscular Hemoglobin 20.3 pg (25-34); Mean Corpuscular Hgb Conc 32.5 g/dL (32-36); Mean Corpuscular Volume 62.4 fL (80-100); Platelet Count 174 K/uL (130-400); RDW Coefficient of Variation 15.4 % (11.5-14.5); RDW Standard Deviation 34.9 fL (36.4-46.3); Red Blood Count 5.72 M/uL (4.7-6.1); White Blood Count 5.53 K/uL (4.8-10.8)
[2021-09-03 06:24] LABS: BUN Creatinine Ratio 20.5 (10-20); Calcium 8.9 mg/dl (8.5-10.1); Creatinine Clr Calc Pharmacy 67.5 ml/min; Est GFR (African American) 98.8 ml/min; Est GFR (Non-African American) 85.2 ml/min; Magnesium 2.1 mg/dl (1.7-2.4); Potassium 3.9 mmol/L (3.5-5.1)
--- NOTE | 2021-09-03 07:57 | Neurology Progress Note ---
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 he has [id number] old chronic cerebral ischemia noted on MRI. Clinically he has left hemiparesis, arm and leg greater than face. He also has some dysarthria. Therefore this is essentially a pure motor stroke. He seems to be about clinically the same today as he was when I examined him yesterday. The patient had hypertension on admission. This is markedly improved on no medicines. In addition, he had a symptomatic episode of sinus bradycardia September 02, which I witnessed, giving him significant lightheadedness ( near syncope but no actual syncope) and worsening of his dysarthria and left sided weakness to a plegia. Over the next 30 minutes his speech and sensorium came back to normal and his weakness on the left side was similar to that which I saw on my examination listed above. Therefore he had an episode of hypoperfusion to his area of stroke, likely temporarily worsening his symptoms and then recovered as his pulse and pressure recovered. his anemia from thalassemia may contribute to his tendency to have worsening symptoms with hypotension. Recommendations: 1. avoid over-correction of blood pressure - just monitor for now 2. Cardiology consult for this episode of symptomatic sinus bradycardia. 3. Continue 81 milligram aspirin tablet daily. 4. Physical, occupational, and speech therapy consult. 5. this patient would be, technically, a high dose statin candidate but I would start him on a standard dose for now. 6. Since he is stable, I have no further neurologic testing or treatment recommendations to make at this time. [facility] [place]. Neurology can follow up after his rehab hospital visit, as outpatient. Overall, I spent a total of 25 minutes with this case including review of records, direct evaluation the patient at bedside, and discussion of the case with the patient and RN at bedside as well as Dr. Pinto, including differential diagnosis and treatment options. Admission and Anticipated Discharge Date Admission Date: September 01, 2021 Subjective he feels better today with no lightheadedness, increased weakness, pain or headache. His vision is good and he is not number tingly. Nursing reports no further episodes of bradycardia or hypotension. Monitoring has shown no further episodes of sinus bradycardia. Echocardiogram was largely unremarkable. Results & Data ([facility]) Vital Signs (Past 12 Hours) Vital Signs Temp Pulse Pulse Resp BP Pulse Ox 09/03/21 07:12 72 09/03/21 06:47 36.6 C 72 18 156/74 H 94 09/03/21 03:19 36.9 C 79 18 152/61 H 94 09/02/21 23:00 37.0 C 84 18 147/90 H 91 09/02/21 22:29 112 H Exam (Neuro) Physical Exam: He is awake and alert. Speech has some mild dysarthria only. There is no aphasia. Extraocular muscles are intact without nystagmus. There is a slight asymmetry was smile on the left compared to the right. Strength is 4/5 diffusely in the left arm and leg compared to the right which is normal. He has decreased facility. Stance sitting up is normal and he is asymptomatic. 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
[2021-09-03] MEDS: ATORVASTATIN 40 MG TAB PO SCH (08:01)
[2021-09-03] MEDS: ENOXAPARIN INJ 40 MG/0.4 ML SYR SQ SCH (08:01)
[2021-09-03] MEDS: ASPIRIN 81 MG CHEW PO SCH (08:04)
--- NOTE | 2021-09-03 09:56 | Cardiology Consultation ---
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 Bradycardia: He had a fairly transient episode of bradycardia lasting less than 2 minutes. There were no periods of sinus arrest or severe bradycardia. There did not appear to be lengthening of the [place] interval, but there was associated hypotension. Patient had worsening of his neurologic symptoms during that time likely due to transient hypoperfusion. The symptoms appear to have improved today although according to the patient not quite back to his admission state. I think the event was vagally mediated. The patient was getting some news regarding his stroke at the time and did have a classic prodrome. His symptoms lasted for a while afterwards which is also consistent with high vagal output. He has had similar episodes in the past and does admit to similar symptoms when he cuts himself or sees blood. He has never had syncope related to these episodes. His sole episode of syncope was felt to be related to orthostatic hypotension and alpha antagonists. The most important intervention is simply recognizing the symptoms and sitting or lying down. Counter pressure maneuvers can also be performed if necessary. I do not think a permanent pacemaker would have any utility in this circumstance. In general, his symptoms are mild. There is also no guarantee that a pacemaker would attenuate the symptoms or eliminate the episodes. 2. Cerebrovascular accident: He appears have a pontine infarct. Clinically improving. Scheduled for rehab. Etiology is believed to be small vessel ischemic disease. If there is any debate about the etiology or concern for occult atrial fibrillation, Implantable loop recorder could be considered. History of Present Illness Reason for Consultation: Bradycardia Requesting Physician: Mikki Attending Physician: Sj Pinto MD History of Present Illness patient is a 75-year-old gentleman admitted to the hospital with evidence of a pontine infarct. It seems that the patient had developed some left-sided weakness. During his neurologic evaluation he was noted to have worsening of h is neurologic symptoms and become weak. The patient felt somewhat hot as well. His symptoms improved after approximately 20 minutes was neurologic deficit had worsened. The patient states that he has had symptoms of this nature in the past. Generally speaking are fairly transient. He reports perhaps 1-2 episodes that were similar in nature every year. New generally characterized by a sense of warmth, weakness and transient tunnel vision. Most of the time the symptoms resolved without any intervention and do not result in loss of postural tone or loss of consciousness. Patient reported only 1 episode of syncope it initially was attributed to use of prostate medicine. He did have some orthostatic type symptoms with prostate medicine previously, presumably an alpha antagonist. Prior to his recent neurologic event, he was fairly active. He did suffer an injury to his left shoulder and had been doing less exercise as a result. 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 However, he generally splits his own wood, can go fishing, can at ascend and descend hills and recently was up and down a ladder without other limitation. He has not reported symptoms of palpitations. Allergies Allergy/AdvReac Type Severity Reaction Status Date / Time acetaminophen AdvReac Severe Hallucinati Verified 09/01/21 17:52 [From Darvocet-N] ng azithromycin AdvReac Severe Heart races Verified 09/01/21 17:52 oxycodone [From Percocet] AdvReac Severe Hallucinati Verified 09/01/21 17:52 ng propoxyphene AdvReac Severe Hallucinati Verified 09/01/21 17:52 [From Darvocet-N] ng tramadol AdvReac Mild constipatio Verified 09/01/21 17:52 n Home Medications Medication Instructions Recorded Confirmed Type ibuprofen 600 mg tablet 600 mg PO DAILY 09/01/21 09/01/21 History Patient History Medical History (Updated 09/02/21 @ 17:44 by Ovidio Faustin MD) 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 Coronado H/O right knee surgery arthroscopic History of colostomy History of cystoscopy History of lumbar surgery x3 History of nasal surgery History of tooth extraction Family History Father , age 67 of Pseudomonas infection of the lung Thalassemia COPD (chronic obstructive pulmonary disease) Mother , age 83 of lung cancer COPD (chronic obstructive pulmonary disease) Lung cancer Denies family history of Ovarian cancer Prostate cancer Myocardial infarction Breast cancer Colorectal cancer Social History (Updated 09/02/21 @ 08:01 by Marquise Candelaria MD) Smoking Status: Never smoker Second Hand Exposure: Yes (parents smoked); Hx Alcohol Use: Yes Alcohol type: wine and hard liquor Alcohol Intake Frequency: 2-3 x/Week Hx Substance Use: No Preferred Language: Slovenian Communication Ability: Effective Visual Impairment: No Limitations Hearing Ability: Normal Communications Editor Required: No Beliefs That Will Affect Care: None marital status: Current Living Situation: Spouse current occupational status: retired 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 improved use of the left arm and leg today. Weakness improved. Physical Exam Physical Exam: The patient is alert and oriented. Mood and affect appeared normal. He answered all questions appropriately. HEENT: Pupils are equal and reactive to light and accommodation. Extraocular movements are intact. The sclerae are anicteric. Neuro: Left leg and arm weakness. Lungs: Clear to auscultation bilaterally. He has good air movement without use of accessory muscles. No rales wheezes or rhonchi. Cardiac: Heart demonstrates a regular rate and rhythm. Normal S1 and S2. No murmurs on examination. Pulses: The patient has palpable radial pulses bilaterally that are equal in intensity Extremities: There was no evidence of hypoperfusion. There is no cyanosis or clubbing. There is no edema. Skin: I did not appreciate any rashes on examination today. Results & Data ([facility]) Vital Signs (Past 12 Hours) Vital Signs Temp Pulse Pulse Resp BP Pulse Ox 09/03/21 07:12 72 09/03/21 06:47 36.6 C 72 18 156/74 H 94 09/03/21 03:19 36.9 C 79 18 152/61 H 94 09/02/21 23:00 37.0 C 84 18 147/90 H 91 09/02/21 22:29 112 H Laboratory Results Abnormal Lab Results 09/03/21 09/03/21 05:20 05:20 WBC 5.53 RBC 5.72 Hgb 11.6 L Hct 35.7 L MCV 62.4 L MCH 20.3 L MCHC 32.5 RDW Std Deviation 34.9 L RDW Coeff of Christin 15.4 H Plt Count 174 Sodium 139 Potassium 3.9 Chloride 107 Carbon Dioxide 26 Anion Gap 6 BUN 18 Creatinine 0.88 Est Cr Clr Drug Dosing 67.5 Est GFR ( Amer) 98.8 Est GFR (Non-Af Amer) 85.2 BUN/Creatinine Ratio 20.5 H Glucose 105 H Calcium 8.9 Magnesium 2.1 Diagnostic Findings Echocardiogram performed 09/02/2021: Normal LV systolic function. Possible small wall motion abnormality in the basal inferior inferoseptal area. Mild LVH. No valvular abnormalities. No evidence of PFO EKG obtained the time admission revealed normal sinus rhythm with frequent PVCs.. 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
[2021-09-03 12:15] VITALS: TEMP 97.2; O2SAT 97
[2021-09-03 13:48] VITALS: BP 156/74; PULSE 72
--- NOTE | 2021-09-03 17:12 | Discharge Summary ---
Date of Service September 03, 2021 Admission HPI Per Admitting Provider 75yo M w/ hx of lower back pain who presents with concern for stroke. Reports that approx. 3 days, he began to have trouble with strength and coordination of his left side. In general, he denies dizziness, but just felt "wobbly" and would fall to the left. Likewise with his left arm, he reports that it would give out, and he would drop his cup or have trouble lifting up objects. He also reports some difficulty with word-finding, though no outright aphasia. There is some dysarthria as well. He has not taken anything for this. He cannot think of any inciting events prior to this beginning. He denies any palpitations or chest pain. Principal Diagnosis Right pontine stroke Vasovagal syncope Discharge Exam Constitutional WD/WN, vitals as above Eyes EOM intact bilaterally; no conjunctival abnormality ENMT external ear and nose normal, oropharynx normal Neck trachea midline, no thyromegaly normal visual inspection Respiratory normal respiratory effort, lungs clear to auscultation no respiratory distress Cardiovascular RRR, no murmur, no edema Gastrointestinal (Abdomen) Inspection/Auscultation: abdomen normal to inspection; abdomen not distended Musculoskeletal no cyanosis or clubbing, extremities motor strength 5/5 Skin no rashes, warm and dry Neurologic moves all extremities, + focal motor deficit (Left arm and leg) and awake Speech / Cognition: + abnormal speech and + expressive aphasia (Mild word- finding issues) Motor/Sensory: + abnormal movement and + pronator drift Cranial Nerves: + abnormal facial strength (Left ptosis) Psychiatric Orientation: alert, oriented to person and cooperative Discharge Data Allergies Allergy/AdvReac Type Severity Reaction Status Date / Time acetaminophen AdvReac Severe Hallucinati Verified 09/01/21 17:52 [From Darvocet-N] ng azithromycin AdvReac Severe Heart races Verified 09/01/21 17:52 oxycodone [From Percocet] AdvReac Severe Hallucinati Verified 09/01/21 17:52 ng propoxyphene AdvReac Severe Hallucinati Verified 09/01/21 17:52 [From Darvocet-N] ng tramadol AdvReac Mild constipatio Verified 09/01/21 17:52 n Consultations 09/01/21 17:37 ED Decision to Admit Stat 09/01/21 21:28 Consult Neurology Routine 09/02/21 11:56 Consult Cardiology Routine 09/02/21 17:24 Consult Cardiac Electrophysiology Routine Ordered Studies 09/01/21 16:14 CT head/brain wo con Stat 09/01/21 21:28 CT angio head w con Routine CT angio neck with con Routine MR brain wo con Routine Hospital Course (1) 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 - CTA head / neck on 09/01 showed high-grade stenosis of right P1, but otherwise normal. No intervention for this. - TTE showed normal EF and no PFO. - PT/OT/DRILLING FOREMAN recommend rehab -> To [facility] for rehab. - Neuro recommend ASA & statin - A1c was 5.7%. - Monitor on telemetry -> Given overall picture, concern for afib & embolic stroke is quite low. (2) Symptomatic sinus bradycardia: Has reported episodes of going dark for "years." At ~7am on 09/02, while in the presence of the neurologist, he became acute hypotensive with transient worsening of his stroke symptoms. His telemetry showed an acute drop in his HR to 39. He rebounded on his own without fluids or additional medication. - Cardiology consulted -> [place] this was a vasovagal event. No need for pacemaker. (Of note: TTE shows a small, possible area of basal inferior/inferoseptal akinesis. Without symptoms, cardiology did not feel further testing was warranted given he is already on ASA/statin for his CVA. (3) Thalassemia minor: Hgb baseline appears to be ~12. Presently at baseline with MCV of 62. Anemia labs all normal. - Monitor (4) Chronic lower back pain: Hx of 3 lower back surgeries. Last one was ~18 years ago. - Acetaminophen PRN (5) DVT prophylaxis: Lovenox 40 mg SQ QAM Total Time Total Time Spent Total Time Spent (In Minutes): 35 Discharge Plan Discharge Items Patient Disposition: Transfer Inpatient Rehab Fac Reason For Visit: STROKE Discharge Diagnosis: Right pontine stroke Activity: Resume your previous activity Non-emergency contact: Primary Care Provider and Neurologist Call non-emergency contact if: your symptoms worsen Follow-up/Referrals: Marquise Candelaria MD [Physician] - (Please see Neurology soon after leaving rehab.) Griselda Hanson MD [Primary Care Provider] - Diet: Heart Healthy Addtl Attending Provider Instructions: Mr. Rodriguez, You were admitted to the hospital with left-sided weakness and trouble speaking which is because you had a stroke. Unfortunately, we did not see any particular reason for this stroke, it just is a very terrible thing that happened. We are sending you out on aspirin and atorvastatin to help prevent any further strokes. The remainder of your testing was normal apart from a narrowing of one branch of one blood vessel, and the medication will help treat that as well. Your heart is squeezing well. Please see the Neurology group shortly after you are released from rehab. Pending Studies at Discharge: No Stand-Alone Forms: My [facility] Skilled Items Patient informed of condition?: Yes DNR: No Discharge Level of Care: Acute rehab Communicable Disease: No Discharge Prognosis: Improving Lines: None Urinary Catheter: No Medications and DC Order Prescriptions: New atorvastatin 40 mg Tablet 80 mg PO QAM Qty: 0 RF: 0 aspirin [Children's Aspirin] 81 mg Tablet,Chewable 81 mg PO DAILY Qty: 0 RF: 0 Discontinued ibuprofen 600 mg tablet 600 mg PO DAILY RF: 0 Discharge Orders: Discharge Order (Routine); Ordered 09/03/21 Ordered By: Sj Pinto Admission Data Admit Date/Time: 09/01/21 18:30 Attending Provider: Sj Pinto Admit Provider: Sj Pinto Primary Care Provider: Griselda Hanson Other Providers: Sj Pinto ; Marquise Candelaria ; [facility] ; Ovidio Faustin ; Santi Brink Other Interventions: Discharge Summary Assessment (RN) Last Done: 09/03/21 13:43 Coding Level of Care Code D/C DAY MANAGEMENT >30 MINS Diagnoses 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
== END 2021-09-03 14:27 | DRG 65 ==
LOC: ED 16:00 → 2N 18:30
DX: R47.1 Dysarthria and anarthria; Z88.5 Allergy status to narcotic agent; M54.50 Low back pain, unspecified; Z88.8 Allergy status to other drugs, medicaments and biological substances; R47.01 Aphasia; D56.3 Thalassemia minor; I63.89 Other cerebral infarction; G81.94 Hemiplegia, unspecified affecting left nondominant side; R00.1 Bradycardia, unspecified